=== PATIENT | female | born 1950 | race African-American/Black ===

== ENCOUNTER 2016-08-18 15:41 | Emergency (ER) | payer BC ==
[2016-08-18 16:02] VITALS: BMI 37.2
[2016-08-18] MEDS ORDERED: ACETAMINOPHEN 500 MG TABLET (FP) PO ONE (18:10)
--- NOTE | 2016-08-18 18:10 | PDOC ---
History of Present Illness - General History Source: Patient, Family Exam Limitations: No Limitations - History of Present Illness Initial Comments: 08/18/16 19:37 The patient is a 66 year old female, with a significant past medical history of HTN, hyperlipidemia, diabetes and cardiac disorder, who presents to the emergency department with fever, chills, body aches and a dry cough since last night. The patient states that she did have a flu shot this season. Family is with her in the ED. The patient denies headache, chest pain, SOB, nausea, vomiting, diarrhea, abdominal pain or any dysuria. Allergies: Penicillins Past Surgical History: Appendectomy Social History: Non smoker. Denies alcohol or drug use. PCP: Dr. Renteria <Chloe Keith - Last Filed: 08/18/16 20:55> <Chacha Casey - Last Filed: 08/19/16 01:33> - General Chief Complaint: Cold Symptoms Stated Complaint: HEADACHES, CHILLS, BACK PAIN Time Seen by Provider: 08/18/16 18:10 Past History <Chloe Keith - Last Filed: 08/18/16 20:55> - Past Medical History Cardiac Disorders: Yes Diabetes: Yes HTN: Yes Hypercholesterolemia: Yes - Surgical History Appendectomy: Yes - Psycho/Social/Smoking Cessation Hx Anxiety: No Suicidal Ideation: No Smoking Status: No Smoking History: Never smoked Have you smoked in the past 12 months: No Number of Cigarettes Smoked Daily: 0 Information on smoking cessation initiated: No Hx Alcohol Use: No Drug/Substance Use Hx: No Substance Use Type: None <Chacha Casey - Last Filed: 08/19/16 01:33> - Past Medical History Allergies/Adverse Reactions: Allergies Allergy/AdvReac Type Severity Reaction Status Date / Time Penicillins Allergy Itching Verified 08/18/16 15:59 Home Medications: Ambulatory Orders Ascorbic Acid [Vitamin C -] 500 mg PO BID 08/18/16 Aspirin [ASA -] 81 mg PO DAILY 08/18/16 Atorvastatin Calcium [Lipitor] 10 mg PO DAILY 08/18/16 Azithromycin [Zithromax -] 250 mg PO UTDICT #6 tab 08/18/16 Azithromycin [Zithromax -] 250 mg PO UTDICT #6 tab 08/18/16 Azithromycin [Zithromax -] 250 mg PO UTDICT #6 tab 08/18/16 Carvedilol 3.125 mg PO BID 08/18/16 Cholecalciferol (Vitamin D3) [Vitamin D3 -] 1,000 unit PO DAILY 08/18/16 Ferrous Gluconate [Iron] 325 mg PO BID 08/18/16 Insulin Glargine,Hum.rec.anlog [Toujeo Solostar] 40 unit SQ BID 08/18/16 Metformin HCl [Glucophage] 1,000 mg PO BID 08/18/16 Mv,Ca,Fe,Min/FA/Guarana/Caff [One Daily Tablet] 1 each PO DAILY 08/18/16 Valsartan/Hydrochlorothiazide [Valsartan-Hctz 160-25 mg Tab] 1 each PO DAILY 03/27 Review of Systems - Review of Systems Able to Perform ROS?: Yes Comments:: 08/18/16 19:33 CONSTITUTIONAL: Present: +Fever, chills, body aches Absent: no fatigue EYES: Absent: visual changes ENT: Absent: ear pain, no sore throat CARDIOVASCULAR: Absent: chest pain, no palpitations RESPIRATORY: Present: +Cough Absent: no SOB GI: Absent: abdominal pain, no nausea, no vomiting, no constipation, no diarrhea GENITOURINARY: Absent: dysuria, no frequency, no hematuria MUSCULOSKELETAL: Absent: back pain, no arthralgia, no myalgia SKIN: Absent: rash NEURO: Absent: headache <Fruit[place]Chloe Hamilton - Last Filed: 08/18/16 20:55> *Physical Exam - Vital Signs Last Vital Signs Temp Pulse Resp BP Pulse Ox 102.6 F H 113 H 19 138/81 96 08/18/16 15:59 08/18/16 15:59 08/18/16 15:59 08/18/16 15:59 08/18/16 15:59 - Physical Exam Comments: 08/18/16 19:39 GENERAL: Obese. Well-appearing, well-nourished. No apparent distress. HEENT: Normocephalic, atraumatic. PERRL, EOM intact. CARDIOVASCULAR: Tachycardic. Normal S1, S2. PULMONARY: Lungs clear to auscultation bilaterally. No wheezing or crackles. ABDOMEN: Soft, non-distended, non-tender. EXTREMITIES: Normal ROM in all four extremities. No gross deformities. No pitting edema. SKIN: Warm, dry. No rash. NEUROLOGICAL: No focal neurological deficits. Moving all extremities purposefully. <Chloe Keith - Last Filed: 08/18/16 20:55> - Vital Signs Last Vital Signs Temp Pulse Resp BP Pulse Ox 102.6 F H 113 H 19 138/81 96 08/18/16 15:59 08/18/16 15:59 08/18/16 15:59 08/18/16 15:59 08/18/16 15:59 <Chacha Casey - Last Filed: 08/19/16 01:33> ED Treatment Course - LABORATORY CBC & Chemistry Diagram: 08/18/16 19:25 08/18/16 19:25 - Medications Given in the ED: ED Medications Discontinued Medications Generic Name Dose Route Start Last Admin Trade Name Freq PRN Reason Stop Dose Admin Acetaminophen 975 mg 08/18/16 18:10 08/18/16 18:18 Tylenol - PO 08/18/16 18:11 975 mg ONCE ONE Administration <Chloe Keith - Last Filed: 08/18/16 20:55> - LABORATORY CBC & Chemistry Diagram: 08/18/16 19:25 08/18/16 19:25 <Chacha Casey - Last Filed: 08/19/16 01:33> Medical Decision Making - Medical Decision Making 08/18/16 20:55 EXAM: CHEST PA & LAT Reviewed By: Dr. Marvin Aguilar IMPRESSION: No acute cardiopulmonary disease. No focal pneumonia. <Chloe Keith - Last Filed: 08/18/16 20:55> - Medical Decision Making 08/19/16 01:27 66-year-old female been sick for one day with cough and fever. She is a diabetic Chest x-ray did not show any infiltrates CBC did not show any leukocytosis Chemistries actually showed hypoglycemia with a glucose of 67. Patient was given juice and turkey to eat Influenza AB cultures negative -potassium was 3.1 and it was supplemented IMP viral syndrome/URI/hypokalemia 08/19/16 01:31 08/19/16 01:32 <Chacha Casey - Last Filed: 08/19/16 01:33> *DC/Admit/Observation/Transfer - Attestations Scribe Attestion: 08/18/16 18:25 Documentation prepared by Chloe Keith, acting as biomedical manager for Chacha Casey MD. <Chloe Keith - Last Filed: 08/18/16 20:55> <Chacha aCsey - Last Filed: 08/19/16 01:33> Diagnosis at time of Disposition: Cough, Body aches Fever Qualifiers: Fever type: other Qualified Code(s): R50.81 - Fever presenting with conditions classified elsewhere - Discharge Dispostion Disposition: HOME Condition at time of disposition: Stable - Prescriptions Prescriptions: Azithromycin [Zithromax -] 250 mg PO UTDICT #6 tab Azithromycin [Zithromax -] 250 mg PO UTDICT #6 tab Azithromycin [Zithromax -] 250 mg PO UTDICT #6 tab - Referrals Referrals: Juan Renteria MD [Primary Care Provider] - - Patient Instructions Printed Discharge Instructions: DI for Viral Upper Respiratory Infection -- Adult, DI for Acute Bronchitis Additional Instructions: -please orange picker your prescription at your pharmacy -rest -take tylenol for fever and body aches -See your regular doctor this week
[2016-08-18] MEDS ORDERED: ACETAMINOPHEN 325 MG TABLET (FP) ONE (18:15)
[2016-08-18 19:38] VITALS: BP 106/62; PULSE 111
[2016-08-18 19:47] LABS: BASOPHIL 0.4 % (0-2.0); EOSINOPHIL 0.1 % (0-4.5); MCH 28.8 pg (25.7-33.7); MCHC 32.2 g/dl (32.0-36.0); MEAN CELL VOLUME 89.4 fl (80-96); MEAN PLT VOLUME 8.1 fl (7.5-11.1); NEUTROPHILS 77.4 % (42.8-82.8); PLATELET COUNT 250 K/MM3 (134-434); RDW 14.6 % (11.6-15.6)
[2016-08-18 19:58] LABS: ALBUMIN 3.8 g/dl (3.4-5.0); ALK PHOS 66 U/L (45-117); ANION GAP 9 (8-16); BILIRUBIN,TOTAL 0.4 mg/dL (0.2-1.0); CALCIUM 8.8 mg/dL (8.5-10.1); CO2 29 mmol/L (21-32); CREATININE 0.8 mg/dL (0.55-1.02); GLUCOSE,RANDOM 67 mg/dL (74-106); SGOT/AST 20 U/L (15-37); SGPT/ALT 26 U/L (12-78); TOT PROT 7.1 g/dl (6.4-8.2)
[2016-08-18] MEDS ORDERED: POTASSIUM CHLORIDE TABS 20 MEQ TABLET.ER (FP) PO ONE ×2 (20:24→20:32)
[2016-08-18] MEDS ORDERED: AZITHROMYCIN 250 MG TABLET (FP) PO ONE (20:50)
[2016-08-18] MEDS ORDERED: AZITHROMYCIN 250 MG TABLET (FP) ONE (21:08)
[2016-08-18 21:14] VITALS: TEMP 98.7
== END 2016-08-18 21:12 | disposition home or self-care (01) ==
LOC: JER 15:41
DX: J20.9 Acute bronchitis, unspecified (principal); I10 Essential (primary) hypertension; E11.9 Type 2 diabetes mellitus without complications; Z79.4 Long term (current) use of insulin; E78.00 Pure hypercholesterolemia, unspecified
CPT/HCPCS: 36415; 71020-TC; 80053; 85025; 87804; 99282-25